=== PATIENT | male | born 1960 | race African-American/Black ===

== ENCOUNTER 2019-09-06 05:33 | Day surgery (SDC) | payer OTHER ==
[2019-09-06] MEDS ORDERED: FAMOTIDINE 20MG TABLET PO ONE (06:00)
[2019-09-06] MEDS ORDERED: ACETAMINOPHEN 500 MG TABLET PO ONE (06:00)
[2019-09-06] MEDS ORDERED: [UNRECOGNIZED DRUG - OTHER] IJ ONE ×4 (06:00)
[2019-09-06] MEDS ORDERED: SODIUM CHLORIDE IJ ONE ×4 (06:00)
[2019-09-06] MEDS ORDERED: METOCLOPRAMIDE 10 MG TABLET PO ONE (06:00)
[2019-09-06] MEDS ORDERED: ROPIVACAINE HCL IJ ONE ×4 (06:00)
[2019-09-06] MEDS ORDERED: CEFAZOLIN 2 Gram 2 GM/50 ML BAG IVPB ONE (06:00)
[2019-09-06] MEDS ORDERED: MECLIZINE 25 MG TABLET PO ONE (06:00)
[2019-09-06] MEDS ORDERED: RINGERS SOLUTION,LACTATED 1,000 ML IV ONE ×2 (06:10→08:15)
[2019-09-06] MEDS: MELOXICAM 7.5 MG TABLET PO SCH ×2 (06:27→10:21)
[2019-09-06] MEDS ORDERED: SENNOSIDES/DOCUSATE SODIUM UD CAPSULE PO PRN (10:45)
[2019-09-06] MEDS ORDERED: RINGERS SOLUTION,LACTATED 1,000 ML IV SCH (10:45)
[2019-09-06] MEDS ORDERED: ACETAMINOPHEN W/ CODEINE 300MG/30MG TABLET PO PRN ×2 (10:45)
[2019-09-06] MEDS ORDERED: CEFAZOLIN 2 Gram 2 GM/50 ML BAG IVPB SCH ×2 (10:45→15:00)
[2019-09-06] MEDS ORDERED: TRAMADOL HCL 50 MG TABLET PO PRN ×2 (10:45)
[2019-09-06] MEDS ORDERED: METOCLOPRAMIDE HCL 10 MG/2 ML VIAL IVP PRN (10:45)
[2019-09-06] MEDS ORDERED: ACETAMINOPHEN 325 MG TAB PO PRN (10:45)
[2019-09-06] MEDS ORDERED: AL HYDROX/MAG HYDROX 30ML UD PO PRN (10:45)
--- NOTE | 2019-09-06 14:07 | Rehab Evaluation ---
Patient Information - Patient Information Diagnosis: OA left hip, s/p Left MAIKOL Ordered Treatment: OT Evaluate and Treat Status: Initial Evaluation Surgery: Yes (L MAIKOL) Date of Surgery: 09/06/19 Past Medical/Surgical Hx: PAST MEDICAL/SURGICAL HISTORY Past Surgical History HERNIA REPAIR PMH - Respiratory Hx Respiratory Disorders Yes Hx of SOB Yes: WITH EXERTION PMH - Cardiovascular Hx Cardiovascular Disorders No Exercise Tolerance Fair Comment: D/T HIP PAIN PMH - Neuro Hx Neurological Disorders No PMH - GI Hx Gastrointestinal Disorders No PMH - Hx Genitourinary Disorders No PMH - Endocrine Hx Endocrine Disorders No PMH - Musculoskeletal Hx Musculoskeletal Disorders Yes Hx Arthritis Yes: HIPS, HANDS PMH - Psych Hx Psychiatric Problems Yes Hx Anxiety Yes: R/T UPCOMING SX PMH - Hematology/Oncology Hx Hematology/Oncology No Disorders Premorbid Status: Detail (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 Ambulated without device.) Social History: Detail (Patient lives with his ex- in a 2-story house with one step to enter into home, 1 step to get to mudroom once inside the home and 2 steps to get into kitchen. No railings. Patient states they do not use the second floor. Patient's ex- will be home for at least four hours in the morning to assist patient with any ADL needs. Bathroom consists of walk-in shower with seat, hand held shower head, and grab bars in shower. Patient has a raised toilet seat with handles, 2WW, dormitory keeper and sock aide.) Precautions: [place], Fall - Time With Patient Total Time Spent With Patient (Min): 45 Treatment Procedures: Detail (eval low OT) Subjective Information - Subjective Information Per Patient (Patient states he still has some remaining paresthesia in bilateral legs below knee level. Able to lift LLE with no issues and move toes and ankle. Pt's ex also stated that right hip is very "bad" also.) Objective Data - Pain Pain Present: Yes Pain Intensity: 4 (L hip) Pain Scale Used: Numeric (1 - 10) - Mental Status Patient Orientation: Oriented x3 - Visual Perception Appears within normal limits for therapeutic activities - ROM Within normal limits (BUE's) - Strength/Tone Within normal limits (BUE's) - Coordination Appears within normal limits for therapeutic activities - Bed Mobility Independent (Min A with LLE management off and onto bed when moving from short sit edge of bed <> supine.) - Transfers Needs Assist (On first attempt when seeing patient at 1pm patient had difficulty maintaining R foot underneath him as it kept slipping forward. Mod A for sit > stand t/f with verbal cues needed to not pull on walker and to kick L leg out front to not break 90 deg when leaning forward. Patient was re-evaluated at 3:15 PM and was SBA sit<>stand t/f with no postural sway once in standing.) - Balance Balance Sitting: Good Balance Standing: Fair (On firtst attempt seeing patient at 1PM, he showed postural sway in standing and required mod A from therapist to correct so as not to fall forward or backwards while standing to pull pants over hips using one hand on walker for support. On second attempt with patient to re-evaluate at 3:15 PM, patient showed no loss of balance or postural sway when standing using 2WW.), Poor - Gait Detail (refer to PT note) - ADL's/IADL's Detail (Patient and patient's ex- were educated on modified LB drsg techniqu es using adaptive equipment (dormitory keeper and sock aid). Patient able to demonstrate understanding of hip precautions while drsg to ensure safety. Patient independent with pants thread over feet and pull to above knees. However, patient required mod A sit>stand and mod A while in standing as he pulled pants over hips due to postural sway in standing. Patient independent with pants doff using dormitory keeper. He will be wearing slip on shoes while at home. Patient refused to trial donning sock using sock aide at this time but was provided demonstration by therapist and both patient and patient's ex- able to verbalize understanding. Patient was reevaluated for modified LB drsg techniques at 3:15 pm and he was independent sit to stand t/f and independent pull pants over hips while in standing using 2WW for support. Patient ambulated into bathroom with SBA and completed independent sit<>stand toilet t/f and hygiene while maintaining hip precuations.) Therapy Assessment - Therapy Assessment Detail (Patient able to verbalize hip precautions and demonstrates understanding of modified LB drsg techniques using adaptive equipment. Patient was reevaluated later in the day due to some concerns with safety in standing to pull pants over hips. On second attempt at seeing patient, patient showed SBA for sit to stand t/f, and independent pull pants over hips with no postural sway or loss of balance noted. He is independent with sit<>stand t/f's off toilet. He is able to verbalize and demonstrate hip precautions with standing turn, t/f's, bed mo bility, and LB drsg. No further inpatient OT needed at this time.) Patient Education - Patient Education Teaching Topic: Equipment Use Response: Return Demonstration Teaching Method: Discussion, Demonstration Teaching Recipient: Patient, Other (ex-) Problem List - Problem List Occupational Therapy Problem List: Detail Prognosis - Prognosis Good Plan - Plan Occupational Therapy Plan: No further inpatient OT needed at this time.
[2019-09-06] MEDS ORDERED: FENTANYL PF 100MCG/2ML VIAL IV ONE (15:07)
[2019-09-06] MEDS ORDERED: MIDAZOLAM HCL 2MG/2ML VIAL IV ONE (15:07)
[2019-09-06] MEDS ORDERED: PROPOFOL 10 MG/ML VIAL IV ONE (15:07)
[2019-09-06] MEDS ORDERED: LIDOCAINE 2% MDV (20MG/ML) 20ML VIAL IV ONE (15:07)
[2019-09-06] MEDS ORDERED: DEXAMETHASONE 4 MG/ML 1ML VIAL IVP ONE (15:28)
[2019-09-06] MEDS ORDERED: ROPIVACAINE HCL (NAROPIN) /PF 5MG/ML 20ML VIAL IV ONE (15:28)
[2019-09-06] MEDS ORDERED: 0.9 % SODIUM CHLORIDE 10 ML VIAL IVP ONE (15:28)
[2019-09-06] MEDS ORDERED: KETOROLAC 30 MG/ML VIAL IVP ONE (15:28)
[2019-09-06] MEDS ORDERED: EPINEPHRINE 1 MG/ML AMPUL SQ ONE (15:38)
--- NOTE | 2019-09-06 16:19 | Rehab Evaluation ---
Patient Information - Patient Information Diagnosis: OA left hip, s/p Left MAIKOL Ordered Treatment: PT Evaluate and Treat Status: Initial Evaluation Surgery: Yes (L MAIKOL) Date of Surgery: 09/06/19 Past Medical/Surgical Hx: PAST MEDICAL/SURGICAL HISTORY Past Surgical History HERNIA REPAIR PMH - Respiratory Hx Respiratory Disorders Yes Hx of SOB Yes: WITH EXERTION PMH - Cardiovascular Hx Cardiovascular Disorders No Exercise Tolerance Fair Comment: D/T HIP PAIN PMH - Neuro Hx Neurological Disorders No PMH - GI Hx Gastrointestinal Disorders No PMH - Hx Genitourinary Disorders No PMH - Endocrine Hx Endocrine Disorders No PMH - Musculoskeletal Hx Musculoskeletal Disorders Yes Hx Arthritis Yes: HIPS, HANDS PMH - Psych Hx Psychiatric Problems Yes Hx Anxiety Yes: R/T UPCOMING SX PMH - Hematology/Oncology Hx Hematology/Oncology No Disorders Premorbid Status: Detail (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 Ambulated without device.) Social History: Detail (Patient lives with his ex- in a 2-story house with one step to enter into home, 1 step to get to mudroom once inside the home and 2 steps to get into kitchen. No railings. Patient states they do not use the second floor. Patient's ex- will be home for at least four hours in the morning to assist patient with any ADL needs. Bathroom consists of walk-in shower with seat, hand held shower head, and grab bars in shower. Patient has a raised toilet seat with handles, 2WW, absorber operator and sock aide.) Precautions: [place], Fall - Time With Patient Total Time Spent With Patient (Min): 30 Treatment Procedures: Detail (Initial Evaluation low complexity) Subjective Information - Subjective Information Per Patient (The patient had complaints of level 8 L hip pain using 0-10 pain scale.) Objective Data - Mental Status Patient Orientation: Oriented x3 - Visual Perception Appears within normal limits for therapeutic activities - ROM Not within normal limits (The patient's L hip is within posterior total hip precautions. All other LE AROM is WNL.) - Strength/Tone Within normal limits (The patient's LE strength was not tested post surgery however is WFL.) - Bed Mobility Independent (The patient was independent with supine to and from sit transfer.) - Transfers Independent (The patient was independent with sit to and from stand transfer and toilet transfer. The patient demonstrated good understanding of car transfer.) - Balance Balance Sitting: Good Balance Standing: Good - Gait Detail (The patient ambulated with front wheeled walker WBAT on the L LE a distance of 75 feet x 1 independently. The patient ambulated on 3 steps with use of wall and folded walker with supervision for safety. The patient's was present to observe proper technique.) Patient Education - Patient Education Teaching Topic: Exercise/Activity (The patient's home exercise program was reviewed and included gluteal sets, hamstring sets, quad sets, standing and supine hip abduction, ankle pumps, heel slides.), Precautions (The patient was aware and showed good understanding of posterior total hip precautions and followed them during mobility.) Response: Return Demonstration Teaching Method: Discussion, Demonstration, Handout Teaching Recipient: Patient, Family Barriers To Learning: None Problem List - Problem List Physical Therapy Problem List: Detail (Decreased L LE strength as to be expected following THR surgery.) Occupational Therapy Problem List: Detail Goals - Goals Physical Therapy Goals: The patient has met all inpt. PT goals and is discharged from inpt. PT. Plan - Plan Physical Therapy Plan: The patient is discharged from inpt. PT due to successful completion of all PT goals. Occupational Therapy Plan: No further inpatient OT needed at this time.
[2019-09-07] MEDS ORDERED: CELECOXIB 100 MG CAPSULE PO SCH (10:00)
[2019-09-07] MEDS ORDERED: ASPIRIN 325 MG TAB ENTERIC-COATED PO SCH (10:00)
--- NOTE | 2019-09-09 09:30 | Operative Note ---
DATE OF SURGERY: 09/06/2019 PREOPERATIVE DIAGNOSIS: Left hip degenerative arthritis. POSTOPERATIVE DIAGNOSIS: Left hip degenerative arthritis. OPERATION: Left total hip arthroplasty through a posterior approach implanting a [place] size 58 Trident 2 cementless cup with a single 25 mm dome screw and a 36 mm X3 neutral polyethylene bearing. The stem was a #7 standard offset Accolade 2 stem with a 36 +0 Delta ceramic head. SURGEON: Harhsal Brownlee MD PROFESSOR OF PHYSICS: ANGELITO Mullen DESCRIPTION OF PROCEDURE: The patient was brought to the operating suite and placed in a supine position. Administered an appropriate spinal anesthetic. Kefzol 2 g given intravenously as well as 2 g of tranexamic acid. The patient was placed in the right lateral decubitus position and the left hip was prepped with alcohol and draped in appropriate sterile fashion including an ioban. After appropriate timeout was had, a posterolateral incision was made, carried down through the gluteus debra and the fascia. Short external rotators were used for resection off the posterior aspect of the femur including the piriformis tendon. Limited posterior capsulotomy was performed. Hip was dislocated posteriorly. The femoral head was amputated. 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 The femoral canal was sequentially reamed and broached to fit a #7 stem. The femur was then translated anteriorly to expose the acetabulum. Marginal labral tissue was removed. Fatty tissue in the central aspect of the acetabulum was removed. Articular cartilage was scraped off and then the acetabulum was sequentially reamed up to a 58 mm size. The above-named acetabular component was impacted with an opening angle of 45 degrees and anteverted 20 degrees. A single 25 mm dome screw was placed to give more secure fixation. Poly liner noted above was snapped into position. Trial reduction with a +0 head showed equal leg length maintenance and a good stability. The hip was dislocated. The broach was removed. The above-named stem was impacted in 15 degrees of anteversion. Trunnion was dried. The above-named head was impacted onto it. The hip was reduced into a dried acetabulum. The hip was irrigated with antibiotic solution and then the soft tissue injected with ropivacaine/epinephrine/Toradol cocktail. The short external rotators were repaired through drill holes in the posterior trochanter. The fascia richard was approximated using absorbable suture, and the skin was closed using absorbable suture and Steri-Strips. Sterile dressings were applied. The patient was awake and transferred to the recovery room in good condition. The final sponge and needle counts were correct. Neurovascular status was not assessed at the time of this dictation and actually was still affected by the block. The plan will be, once the block wears off, to go through all the steps to gain independence with stair climbing and getting in and out of a car. Once he understands that, we will discharge him. The goal will be to make that happen today. He may full weightbear as tolerated. It is already noted exercise limitations in terms of flexion to prevent dislocation. We instructed family regarding dressing changes, and prescriptions were issued for Tylenol 3 to supplement the Mobic that he currently has as well as the Tylenol Extra Strength that he can take up to 4 g per day. He has a followup visit to see me in 6 weeks from surgery. LASHA
== END 2019-09-06 18:00 | disposition home or self-care (01) ==
LOC: MEDSURG 05:33 → SUR 05:33 → MEDSURG 05:33 → UNDOADMIN 05:33 → EDSTATUS 07:30 → SUR 18:00
PROVIDERS: ATTEND Orthopaedic Surgery Adult Reconstructive Orthopaedic Surgery
DX: M16.12 Unilateral primary osteoarthritis, left hip (principal); R06.09 Other forms of dyspnea; F17.210 Nicotine dependence, cigarettes, uncomplicated
CPT/HCPCS: C1776; J0171; J1885; J7120